=== PATIENT | male | born 1965 | race Caucasian/White ===

== ENCOUNTER 2018-08-01 07:30 | Day surgery (SDC) | payer MEDICAID ==
[~2018-08-01] VITALS: Ht 165.1 cm; Wt 63.2 kg
[~2018-08-01 07:30] MED LIST: LIDOcaine 1% (10mg/ml)w/preservative injection 20ml MDV SQ ONE
[2018-08-01 07:43] VITALS: BP 125/81
[2018-08-01] MEDS ORDERED: normal saline 1000ml 1,000 ML IV PRN (07:55)
[2018-08-01] MEDS ORDERED: albumin (human) 25% 100 ML IV solution IV PRN (07:55)
[2018-08-01] MEDS ORDERED: PROP10TA10 PO (07:59)
[2018-08-01] MEDS ORDERED: SPIR25TA5 PO (07:59)
[2018-08-01] MEDS ORDERED: THIA100T70 PO (07:59)
[2018-08-01] MEDS ORDERED: LACT10SO6 PO (07:59)
[2018-08-01] MEDS ORDERED: OXYC5CAP19 PO (07:59)
[2018-08-01] MEDS ORDERED: MULT-964 PO (07:59)
[2018-08-01] MEDS ORDERED: GABA600T2 PO (07:59)
[2018-08-01] MEDS ORDERED: FOLI1TAB16 PO (07:59)
[2018-08-01] MEDS ORDERED: [UNRECOGNIZED DRUG - CODE] PO (07:59)
[2018-08-01] MEDS ORDERED: FURO40TA4 PO (07:59)
== END 2018-08-01 08:30 | disposition home or self-care (01) ==
LOC: SSTAY O 07:30
PROVIDERS: ATTEND Radiology Diagnostic Radiology
DX: R14.0 Abdominal distension (gaseous) (principal); K70.30 Alcoholic cirrhosis of liver without ascites; F32.9 Major depressive disorder, single episode, unspecified; F41.8 Other specified anxiety disorders; I10 Essential (primary) hypertension; G89.29 Other chronic pain; F10.21 Alcohol dependence, in remission; Z87.891 Personal history of nicotine dependence; Z79.891 Long term (current) use of opiate analgesic; Z79.899 Other long term (current) drug therapy
CPT/HCPCS: 76705; J2001; J7030